=== PATIENT | male | born 1990 | race Caucasian/White ===

== ENCOUNTER 2024-08-14 15:05 | Emergency (ER) | payer MEDICARE, SELFPAY ==
[2024-08-14] VITALS (16 sets, daily range): BP systolic 196–214; BP diastolic 119–141; PULSE 72–92; RESP 22; TEMP 36.4; O2SAT 85–98; BMI 47.3
--- NOTE | 2024-08-14 15:19 | ED.GENADULT ---
HPI - General Adult General Chief complaint: Abdominal Pain Stated complaint: vomiting blood, dizziness and abdominal pain Time Seen by Provider: 08/14/24 15:19 History of Present Illness HPI narrative: Pt states whole abdomen hurts, chest hurts, has been dry heaving today, this afternoon one time emesis was basically all blood. Pt states he was fine yesterday. 33-year-old man presenting to emergency depart with concern of abdominal pain and hematemesis. Began vomiting about 5 hours prior to arrival in the emergency department. About an hour prior to arrival did see blood in vomitus. He is having a great deal of abdominal pain. Is not short of breath otherwise. Was in usual state of health prior to this onset of vomiting. No fever. No rashes noted. No particular exposures. No diarrhea noted. Does have a history of GERD. Related Data Home Medications ?Medication ?Instructions ?Recorded ?Confirmed lisinopril 08/14/24 omeprazole 08/14/24 Allergies Allergy/AdvReac Type Severity Reaction Status Date / Time lurasidone (From Latuda) Allergy Rash Verified 08/14/24 18:00 Review of Systems Status of ROS: Reports: 6 or more systems reviewed and unremarkable except as noted in History and below PFSH PFSH Social History Smoking Status: Former smoker Do you use any of these nicotine containing products: Vaping Products How often do you have a drink containing alcohol: 4 or more times a week AUDIT-C Alcohol total score: 4 Non-prescribed substance use: marijuana (any form) Exam Narrative: Exam Narrative: Eyes are closed. Face is diaphoretic. Clearly very uncomfortable. Right arm is lying loose off the bed he has slid down in the bed somewhat. Pupils are equal. Abdomen is obese and soft and very tender across the upper half of the abdomen but generally diffusely tender. Not with peritoneal signs. Extremities are well perfused. He has some tattoos on his skin. Oropharynx is dry lungs appear to be clear. Heart is distant in regular rate and rhythm. Const: Vital Signs, click to edit/add: Vital Signs - 24 hr 08/14/24 15:11 Temperature 97.5 F L Pulse Rate [Right Pulse Oximeter] 87 Respiratory Rate 22 Blood Pressure [Le ft Forearm] 214/128 H Pulse Oximetry 96 Oxygen Delivery Me thod Room Air Documenting provider has reviewed patient's vital signs: yes Course Vital Signs Vital signs: Initial Vital Signs Temperature 97.5 F L 08/14/24 15:11 Temperature Source Oral 08/14/24 15:11 Pulse Rate 87 08/14/24 15:11 Respiratory Rate 22 08/14/24 15:11 Blood Pressure 214/128 H 08/14/24 15:11 Blood Pressure Mean 156 H 08/14/24 15:11 Blood Pressure Position Sitting 08/14/24 15:11 Pulse Oximetry 96 08/14/24 15:11 Oxygen Delivery Method Room Air 08/14/24 15:11 Vital Signs Temperature 97.5 F L 08/14/24 15:11 Pulse Rate 87 08/14/24 15:11 Respiratory Rate 22 08/14/24 15:11 Blood Pressure 214/128 H 08/14/24 15:11 Pulse Oximetry 96 08/14/24 15:11 Oxygen Delivery Method Room Air 08/14/24 15:11 Temperature 97.5 F L 08/14/24 15:11 Pulse Rate 81 08/14/24 18:45 Respiratory Rate 22 08/14/24 15:11 Blood Pressure 206/141 H 08/14/24 19:00 Pulse Oximetry 91 08/14/24 18:45 Oxygen Delivery Method Room Air 08/14/24 18:23 Medications Administered Medications: Discontinued Medications Generic Name Dose Route Start Last Admin Trade Name Freq PRN Reason Stop Dose Admin Hyoscyamine 0.25 mg 08/14/24 18:44 08/14/24 18:52 Hyoscyamine Sulfate 0.125 Mg Tab SUBLINGUAL 08/14/24 18:45 0.25 mg ONCE ONE Administration Sodium Chloride 500 mls @ 1,000 mls/hr 08/14/24 15:30 08/14/24 16:20 0.9 % Sodium Chloride 500 Ml IV 08/14/24 15:59 Infused .Q30M ONE Infusion Ketorolac Tromethamine 30 mg 08/14/24 18:39 08/14/24 18:51 Ketorolac 30 Mg/Ml Inj IVP 08/14/24 18:40 30 mg ONCE ONE Administration Lorazepam 0.5 mg 08/14/24 15:31 08/14/24 15:49 Lorazepam 2 Mg/Ml Inj IVP 08/14/24 15:32 0.5 mg ONCE ONE Administration Morphine Sulfate 4 mg 08/14/24 15:30 08/14/24 15:54 Morphine 4 Mg/Ml Inj IVP 08/14/24 15:31 4 mg ONCE ONE Administration Ondansetron HCl 4 mg 08/14/24 15:30 08/14/24 15:47 Ondansetron 2 Mg/Ml Inj IVP 08/14/24 15:31 4 mg ONCE ONE Administration Medical Decision Making MDM Narrative Medical decision making narrative: I would suspect head gastritis likely infectious and then S[place] tear. Abdominal colic likely source of pain. I think also is understandably anxious about this pain. Will monitor though for repeat vomiting and hematemesis. Try to make more comfortable the IV fluids pain meds and antiemetic. Might need imaging. Differential does include pancreatitis, more significant GI bleed, vascular dissection. GERD flare. Initiated on IV fluids. Morphine and lorazepam, Zofran. Given diffuseness of pain I would like laboratory evaluation to prompt more focused imaging. Labs are reassuring other than elevated transaminases which I suspect more related to fatty liver. White count also little elevated not inconsistent with viral vomiting illness. Minimally improved still seems difficult to move about. Demonstrating pain. Re-examination of abdomen seems to show localizing pain into the right upper abdomen. Ordering for further pain medicine with ketorolac and then also hyoscyamine for intestinal cramping as I still suspect is the primary problem here. Have requested ultrasound limited of the abdomen. Discussing with writing center director, as expected with marked hepatic steatosis/fatty liver. No indication of cholecystitis. Poor visualization of pancreas though lipase ultimately is normal. Improved but still with significant pain complaints have requested CT scan abdomen pelvis. I did personally review CT imaging. Fatty liver noted. Maybe some evidence of ileus. TECHNIQUE: CT of the head without contrast. Coronal and sagittal reformats are included. COMPARISON: None. FINDINGS: No acute intracranial hemorrhage. No mass effect or midline shift. No hydrocephalus or extra-axial collections. Patchy hypoattenuation the supratentorial white matter, typical for chronic microvascular ischemic change. Advanced generalized parenchymal volume loss. Intracranial vascular calcifications. No acute osseous abnormalities. Mastoid air cells and paranasal sinuses are clear. Normal soft tissues. IMPRESSION: IMPRESSION: 1. No acute intracranial abnormalities. No further hematemesis/vomiting. Pain a little improved. I think needs some encouragement. See patient discharge plan for further discussion. Will need follow-up regarding his blood pressure and needs to get back on CPAP. Medical Records Medical records reviewed: Yes I reviewed the patient's medical records Lab Data Lab results reviewed: Yes I reviewed the patient's lab results Labs: Lab Results 08/14/24 08/14/24 08/14/24 Range/Units 15:35 15:59 16:28 WBC 14.81 H (4.50-11.00) K/uL RBC 5.13 (4.30-5.90) m/uL Hgb 15.3 (13.5-17.5) gm/dL Hct 45.7 (37.0-53.0) % MCV 89 (80-100) fL MCH 30 (26-34) pg MCHC 34 (32-36) gm/dL RDW Coeff of Joseluis 12.1 (11.5-15.5) % Plt Count 308 (140-440) K/uL Neut % (Auto) 85.2 H (42.0-72.0) % Lymph % (Auto) 8.6 L (20-44) % [place] % (Auto) 4.2 (0.0-11.0) % Eos % (Auto) 0.1 (0.0-7.0) % Baso % (Auto) 0.2 (0.0-3.0) % Neut # (Auto) 12.60 H (1.7-7.0) K/uL Lymph # (Auto) 1.30 (0.90-2.90) K/uL [place] # (Auto) 0.60 (0.00-0.90) K/UL Eos # (Auto) 0.00 (0.00-0.50) K/uL Baso # (Auto) 0.00 (0.00-0.30) K/uL Abs Immat Gran (auto) 0.30 (0.00-0.30) K/uL Imm/Tot Granulo (auto) 1.7 % Sodium 136 (135-149) mmol/L Potassium 3.7 (3.6-5.1) mmol/L Chloride 101 (96-114) mmol/L Carbon Dioxide 26 (20-32) mmol/L Anion Gap 9 (7-15) mEq/L BUN 10 (5-24) mg/dL Creatinine 0.6 (0.5-1.5) mg/dL Estimated Creat Clear 184.19 Estimated GFR 132 ml/min Glucose 142 H (60-115) mg/dL Calcium 8.9 (8.4-10.6) mg/dL Total Bilirubin 0.4 (0.1-1.5) mg/dL Direct Bilirubin 0.2 (0.0-0.5) mg/dL AST 83 H (12-35) U/L ALT 141 H (4-50) U/L Alkaline Phosphatase 96 (40-150) U/L C-Reactive Protein 0.7 (0.5-1.0) mg/dL Total Protein 7.9 (6.0-8.3) g/dL Albumin 4.7 (3.3-5.0) g/dL Lipase 35 (23-300) U/L Urine Color Yellow (Yellow) Urine Appearance Cloudy A (Clear) Urine pH 8.0 (5.0-8.5) Ur Specific [place] 1.025 (1.000-1.030) Urine Protein 3+ A (Negative) Urine Glucose (UA) Negative (Negative) Urine Ketones 1+ A (Negative) Urine Blood Trace-intact A (Negative) Urine Nitrite Negative (Negative) Urine Bilirubin Negative (Negative) Urine Urobilinogen 0.2 (0.2-1.0) Ur Leukocyte Esterase Negative (Negative) Urine RBC 0-2 (0-2) Urine WBC 0-2 (0-5) Ur Squamous Epith Cells Few (None-Few) Amorphous Sediment Many A (None) Urine Bacteria None (None) Ethyl Alcohol < 0.01 L (0.01-0.03) % Lab Acknowledgement Test Added Discharge Plan Discharge Clinical Impression: Gastritis, Abdominal pain Patient Disposition: Home w/ Parent or Adult Condition: Improved Additional Instructions: I am happy you are feeling better. Your CPAP is important. Please pursue getting it working again. Prescribing Zofran from [facility] for nausea. Slow advance of diet over the next 24-36 hours. Diluted juices, soup broths, toast, rice, crackers. Return for noticeably increasing blood in vomitus if this continues, intractable vomiting, uncontrolled abdominal pain. Prescriptions: No Action omeprazole lisinopril Follow Up/Referrals: Elis Hyatt PA [Referring] - Stand Alone Forms: [facility] Info Instructions
[2024-08-14 15:44] LABS: Basophils Percent Auto 0.2 % (0.0-3.0); Eosinophils Percent Auto 0.1 % (0.0-7.0); Hematocrit 45.7 % (37.0-53.0); Hemoglobin* 15.3 gm/dL (13.5-17.5); Immature Granulocytes Pct Auto 1.7 %; Lymphocytes Percent Auto 8.6 % (20-44); Mean Corpuscular HGB Conc 34 gm/dL (32-36); Mean Corpuscular Hemoglobin 30 pg (26-34); Mean Corpuscular Volume 89 fL (80-100); Monocytes Percent Auto 4.2 % (0.0-11.0); Neutrophils Percent Auto 85.2 % (42.0-72.0); Platelet Count* 308 K/uL (140-440); RDW Coefficient of Variation % 12.1 % (11.5-15.5); Red Blood Count 5.13 m/uL (4.30-5.90); White Blood Count* 14.81 K/uL (4.50-11.00)
[2024-08-14] MEDS: ONDANSETRON 2 MG/ML inj 4 MG IVP (15:47)
[2024-08-14] MEDS: 0.9 % SODIUM CHLORIDE 500 ML 500 ML 1000 ML IV (15:47)
[2024-08-14] MEDS: LORazepam 2 MG/ML inj 0.5 MG IVP (15:49)
[2024-08-14 15:50] LABS: Slide Review Reflex No
[2024-08-14] MEDS: MORPHINE 4 MG/ML INJ IVP (15:54)
[2024-08-14 15:57] LABS: Albumin* 4.7 g/dL (3.3-5.0); Chloride* 101 mmol/L (96-114)
[2024-08-14 15:58] LABS: Potassium* 3.7 mmol/L (3.6-5.1); Sodium* 136 mmol/L (135-149)
[2024-08-14 15:59] LABS: Creatinine* 0.6 mg/dL (0.5-1.5); Est. Creatinine Clearance* 184.19; Estimated Glomerular Filt Rate 132 ml/min
[2024-08-14 16:00] LABS: Alkaline Phosphatase* 96 U/L (40-150); Anion Gap 9 mEq/L (7-15); Aspartate Amino Transferase* 83 U/L (12-35); Bilirubin Direct* 0.2 mg/dL (0.0-0.5); Bilirubin Total* 0.4 mg/dL (0.1-1.5); Blood Urea Nitrogen* 10 mg/dL (5-24); Carbon Dioxide* 26 mmol/L (20-32); Lipase* 35 U/L (23-300); Total Protein* 7.9 g/dL (6.0-8.3)
[2024-08-14 16:01] LABS: Alanine Aminotransferase* 141 U/L (4-50); Calcium* 8.9 mg/dL (8.4-10.6); Glucose* 142 mg/dL (60-115)
[2024-08-14 16:03] LABS: C Reactive Protein* 0.7 mg/dL (0.5-1.0)
[2024-08-14 16:15] LABS: Ethanol* < 0.01 % (0.01-0.03)
[2024-08-14 16:33] LABS: Appearance Urine Cloudy (Clear); Bilirubin Urine Negative (Negative); Blood Urine Trace-intact (Negative); Color Urine Yellow (Yellow); Glucose Urine Negative (Negative); Ketones Urine 1+ (Negative); Leukocyte Esterase Urine Negative (Negative); Nitrite Urine Negative (Negative); Protein Urine 3+ (Negative); Specific Gravity Urine 1.025 (1.000-1.030); Urobilinogen Urine 0.2 (0.2-1.0)
--- NOTE | 2024-08-14 16:35 | CRLHL7_ITS ---
For Patients: As a result of the Century Cures Act, medical imaging exams and procedure reports are released immediately into your electronic medical record. You may view this report before your referring provider. If you have questions, please contact your health care provider. INDICATION: Right upper quadrant pain. FINDINGS: The examination is somewhat limited due to bowel gas and body habitus. There is severe diffuse fatty infiltration of the liver with reduced acoustical penetration. There is no focal hepatic abnormality. The gallbladder is not optimally visualized. There is no cholelithiasis, gallbladder wall thickening or pericholecystic fluid as far as visualized. The common bile duct and pancreas were not successfully visualized. The right kidney measures 13.6 x 6.7 x 7.3 cm. There is normal renal cortical thickness. IMPRESSION: 1. Severe diffuse fatty infiltration of liver. 2. Nonvisualization of the common bile duct and pancreas. Dictated by Facundo Sapp MD @ 08/14/2024 5:58:20 PM (Electronically Signed)
[2024-08-14 16:42] LABS: Amorphous Sediment Urine Many; RBC Urine 0-2 (0-2); Squamous Epithelial Cell Urine Few (None-Few); WBC Urine 0-2 (0-5)
--- NOTE | 2024-08-14 17:24 | CRLHL7_ITS ---
For Patients: As a result of the Century Cures Act, medical imaging exams and procedure reports are released immediately into your electronic medical record. You may view this report before your referring provider. If you have questions, please contact your health care provider. INDICATION: Abdominal pain. TECHNIQUE: Multiplanar CT examination of the abdomen and pelvis was performed after the administration of 100 mL Isovue 370 intravenous contrast. COMPARISON: Same day ultrasound of the abdomen. FINDINGS: Motion degraded examination. Lower chest: No focal consolidation. Normal heart size. No pleural effusions or pneumothorax. Liver: Diffuse hepatic steatosis. Hepatomegaly. Gallbladder: Unremarkable. Biliary: Unremarkable. Pancreas: Within normal limits. Spleen: Unremarkable. Adrenal glands: Unremarkable. Renal/ureters/bladder: Normal in size and symmetrically enhancing. No obstructive uropathy. No hydronephrosis or obstructive urinary calculi. Limited evaluation for renal masses without the use of intravenous contrast. The ureters appear unremarkable. The bladder is within normal limits. Pelvis: Unremarkable prostate. Gastrointestinal: No bowel wall thickening or bowel obstruction. Nonvisualized appendix. No significant colonic diverticulosis. Mild colonic stool burden. Vasculature: No aortic aneurysm. The portal vein remains patent. No significant atherosclerotic calcifications. Lymph nodes: No pathologic lymphadenopathy by size criteria. Peritoneum: No free fluid or pneumoperitoneum. No drainable fluid collections. Abdominal wall/soft tissues: Unremarkable. Bones: No acute osseous abnormalities. IMPRESSION: 1. No acute abdominopelvic pathology. The etiology of the patient`s abdominal pain is not elucidated on this examination. 2. Diffuse hepatic steatosis and mild hepatomegaly. Please note that all CT scans at this facility use dose modulation, iterative reconstruction, and/or weight-based dosing when appropriate to reduce radiation dose to as low as reasonably achievable. Dictated by Mike Fritz MD @ 08/14/2024 6:25:47 PM (Electronically Signed)
[2024-08-14] MEDS: KETOROLAC 30 MG/ML inj IVP (18:51)
[2024-08-14] MEDS: HYOSCYAMINE SULFATE 0.125 MG TAB 0.25 MG SUBLINGUAL (18:52)
== END 2024-08-14 19:50 | disposition home or self-care (01) ==
PROVIDERS: Emergency Provider Family Medicine
DX: K29.70 Gastritis, unspecified, without bleeding (principal); R10.9 Unspecified abdominal pain
CPT/HCPCS: 36415; 74177; 76705; 80048; 80076; 81001; 82077; 83690; 85025; 86140; 96374; 96375; 99284; 99285; A9270; J1885; J2060; J2270; J2405; J7030; Q9967

== ENCOUNTER 2024-09-13 13:10 | Emergency (ER) | payer MEDICARE, SELFPAY ==
[2024-09-13 13:52] VITALS: BP 191/119; PULSE 92; RESP 28; TEMP 36.5; O2SAT 97; BMI 50.2
[2024-09-13 14:57] LABS: PCR FLU A POSITIVE PCR FLU A (Negative); PCR FLU B Negative PCR FLU B (Negative); PCR RSV Negative PCR RSV (Negative); SARS PCR* Negative SARS-CoV-2 (Negative)
--- NOTE | 2024-09-13 15:21 | ED.GENADULT ---
HPI - General Adult General Chief complaint: Abdominal Pain Stated complaint: weakness/difficulty breathing Time Seen by Provider: 09/13/24 15:14 History of Present Illness HPI narrative: This 34-year-old male comes in reporting rather sudden onset of symptoms that began about a day and half ago. He reports headache, abdominal pain, generalized aches and pains, congestion, and cough. He states that he did have abdominal pain about a month ago but those symptoms mostly resolved. He did have a CT scan at that time. Related Data Home Medications ?Medication ?Instructions ?Recorded ?Confirmed lisinopril 08/14/24 omeprazole 08/14/24 Allergies Allergy/AdvReac Type Severity Reaction Status Date / Time lurasidone (From Latuda) Allergy Rash Verified 08/14/24 18:00 Review of Systems Status of ROS: Reports: 10 or more systems reviewed and unremarkable except as noted in History and below Narrative: Constitutional: No fevers, no weight gain or loss. Eyes: No discharge. No vision changes. HENT: No sore throat, no ear pain. He reports nasal congestion. Cardiovascular: No chest pain, no palpitations. Respiratory: No shortness of breath, no wheezes. He reports a cough. Gastrointestinal: No vomiting, no diarrhea. He reports generalized abdominal pain with loss of appetite. Genitourinary: No dysuria, no hematuria. Musculoskeletal: Normal range of motion. Skin: No rashes, no pruritis. Neurological: No dizziness, weakness, sensory change, speech change. Endo/Heme/Allergies: No bruising or bleeding. No polydipsia. Pysch: no suicidality, no anxiety, no insomnia. All other systems reviewed and are negative. [facility] Social History Smoking Status: Former smoker Do you use any of these nicotine containing products: Vaping Products How often do you have a drink containing alcohol: 4 or more times a week AUDIT-C Alcohol total score: 4 Non-prescribed substance use: marijuana (any form) Exam Narrative: Exam Narrative: Constitutional: Well-developed, well-nourished. HEENT: Normocephalic, atraumatic. Neck: Normal range of motion. Nontender. Supple. Heart: Regular. No murmurs. Normal rate. Intact distal pulses. Lungs: Clear to auscultation. No chest discomfort. No wheezes, rhonchi, or rales. Abdomen: Normal bowel sounds. Nontender. No rebound tenderness. Genitalia: Deferred. Back: No midline tenderness. Normal range of motion. Extremities: Normal range of motion. No injury. Skin: Intact. No rash. Warm. No erythema or pallor. Neurologic: No altered sensation. No weakness. Alert and oriented. Psychiatric: No suicidality. Nursing notes and vitals signs are reviewed. Const: Vital Signs, click to edit/add: Vital Signs - 24 hr 09/13/24 13:52 Temperature 97.7 F Pulse Rate [Pulse Oximeter] 92 Respiratory Rate 28 H Blood Pressure [Ri t Upper Arm] 191/119 H Pulse Oximetry 97 Oxygen Delivery Me thod Room Air Course Vital Signs Vital signs: Initial Vital Signs Temperature 97.7 F 09/13/24 13:52 Temperature Source Temporal Artery Scan 09/13/24 13:52 Pulse Rate 92 09/13/24 13:52 Respiratory Rate 28 H 09/13/24 13:52 Blood Pressure 191/119 H 09/13/24 13:52 Blood Pressure Mean 143 H 09/13/24 13:52 Blood Pressure Position Sitting 09/13/24 13:52 Pulse Oximetry 97 09/13/24 13:52 Oxygen Delivery Method Room Air 09/13/24 13:52 Vital Signs Temperature 97.7 F 09/13/24 13:52 Pulse Rate 92 09/13/24 13:52 Respiratory Rate 28 H 09/13/24 13:52 Blood Pressure 191/119 H 09/13/24 13:52 Pulse Oximetry 97 09/13/24 13:52 Oxygen Delivery Method Room Air 09/13/24 13:52 Temperature 97.7 F 09/13/24 13:52 Pulse Rate 92 09/13/24 13:52 Respiratory Rate 28 H 09/13/24 13:52 Blood Pressure 191/119 H 09/13/24 13:52 Pulse Oximetry 97 09/13/24 13:52 Oxygen Delivery Method Room Air 09/13/24 13:52 Medications Administered Medications: Discontinued Medications Generic Name Dose Route Start Last Admin Trade Name Freq PRN Reason Stop Dose Admin Acetaminophen 1,000 mg 09/13/24 15:20 09/13/24 15:43 Acetaminophen 500 Mg Tablet PO 09/13/24 15:21 1,000 mg ONCE ONE Administration Ketorolac Tromethamine 30 mg 09/13/24 15:20 09/13/24 15:43 Ketorolac 30 Mg/Ml Inj IM 09/13/24 15:21 30 mg ONCE ONE Administration Medical Decision Making MDM Narrative Medical decision making narrative: This patient comes in with generalized aches and pains with specific complaints of headache and abdominal pain. He also has cough with nasal congestion. Nasal pharyngeal swab does return positive for influenza A. The patient did receive an intramuscular injection of Toradol 30 mg. He is okay to be discharged home. He received [facility] prescriptions for Tamiflu and Tylenol 3. Lab Data Labs: Lab Results 09/13/24 Range/Units 14:00 SARS-CoV-2 (PCR) Negative SARS-CoV-2 (Negative) Influenza Type A (PCR) POSITIVE PCR FLU A A (Negative) Influenza Type B (PCR) Negative PCR FLU B (Negative) RSV (PCR) Negative PCR RSV (Negative) Discharge Plan Discharge Clinical Impression: Influenza A Patient Disposition: Home, Self-Care Condition: Stable Additional Instructions: Take medication as prescribed and needed. Follow up with MD or return if worsening. Prescriptions: No Action omeprazole lisinopril Follow Up/Referrals: Provider,Not a Local [Primary Care Provider] - Stand Alone Forms: [facility] Info Instructions
[2024-09-13] MEDS: KETOROLAC 30 MG/ML inj IM (15:43)
[2024-09-13] MEDS: ACETAMINOPHEN 500 MG TABLET 1000 MG PO (15:43)
== END 2024-09-13 16:48 | disposition home or self-care (01) ==
PROVIDERS: Emergency Provider Emergency Medicine Emergency Medical Services
DX: J11.1 Influenza due to unidentified influenza virus with other respiratory manifestations (principal)
CPT/HCPCS: 87631; 96372; 99284; A9270; J1885